=== PATIENT | male | born 1990 | race Two or more races ===

== ENCOUNTER 2018-09-03 23:42 | Emergency (ER) | payer SELFPAY ==
[~2018-09-03] VITALS: Ht 172.7 cm; Wt 68.0 kg
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
== END 2018-09-04 03:04 ==
LOC: EMR 23:57
DX: F10.920 Alcohol use, unspecified with intoxication, uncomplicated (principal); S09.92XA Unspecified injury of nose, initial encounter; Y09 Assault by unspecified means
CPT/HCPCS: 99282